=== PATIENT | male | born 1940 | race Caucasian/White ===

== ENCOUNTER 2021-08-25 13:07 | Inpatient (IN) | payer OTHER ==
[~2021-08-25] VITALS: Ht 172.7 cm; Wt 59.5 kg
[2021-08-25 13:34] LABS: BASOPHILS % (AUTO) 0.3 % (0.0-5.0); EOSINOPHILS % (AUTO) 1.9 % (0.0-8.0); HEMATOCRIT 43.1 % (36-48); LYMPHOCYTES % (AUTO) 14.3 % (21.0-51.0); MEAN CORPUSCULAR HEMOGLOBIN 32.1 pg (27.0-33.0); MEAN CORPUSCULAR HGB CONC 35.3 g/dL (32.0-36.0); MEAN CORPUSCULAR VOLUME 90.9 fL (79-99); NEUTROPHILS % (AUTO) 72.1 % (40.0-77.0); PLATELET COUNT (AUTO) 194 K/uL (130-400); RED BLOOD CELL COUNT(AUTO) 4.74 MIL/uL (4.00-5.50); RED CELL DISTRIBUTION WIDTH 12.5 % (11.0-15.5); WHITE BLOOD COUNT (AUTO) 9.9 K/uL (4.8-10.8)
[2021-08-25 14:05] LABS: ALBUMIN 3.8 g/dL (3.5-5.0); BILIRUBIN,TOTAL 2.5 mg/dL (0.2-1.0); CREATININE 0.7 mg/dL (0.5-1.5); POTASSIUM 3.9 mmol/L (3.5-5.1); TOTAL PROTEIN, SERUM 6.6 g/dL (6.0-8.3)
[2021-08-25 14:33] LABS: INR 1.01 (0.85-1.15)
[2021-08-25 14:34] LABS: PARTIAL THROMBOPLASTIN TIME 30.9 SEC (26.3-35.5)
[2021-08-25 14:35] LABS: APPEARANCE,URINE Clear (CLEAR); BILIRUBIN,URINE Negative (NEGATIVE); COLOR,URINE Yellow (YELLOW); GLUCOSE, URINE (UA) >=1000 mg/dL (NEGATIVE); KETONES,URINE Trace mg/dL (NEGATIVE); LEUKOCYTE ESTERASE ,URINE Negative (NEGATIVE); NITRATE,URINE Negative (NEGATIVE); OCCULT BLOOD,URINE Negative (NEGATIVE); PH,URINE 6.5 (5.0-8.0); PROTEIN,URINE Negative (NEGATIVE)
[2021-08-25 14:47] LABS: BACTERIA,URINE Rare /HPF (None Seen); RBC,URINE 0-1 /HPF (0-1); SQUAMOUS EPITHELIAL CELL,UR Rare /HPF (0-2)
[2021-08-25] MEDS ORDERED: AMLODIPINE 5 MG TAB PO ONE (15:00)
[2021-08-25] MEDS: INSULIN HUMULIN R 100 UNIT/ML 3ML SQ SCH ×2 (15:00→20:17)
[2021-08-25] MEDS ORDERED: IPRATROPIUM/ALBUTEROL SULFATE 3 ML SOLUTION IH PRN (15:00)
[2021-08-25 15:15] LABS: HEMOGLOBIN A1C 8.4 % (4.0-6.0)
[2021-08-25 15:20] LABS: MAGNESIUM 2.2 mg/dL (1.80-2.40); THYROID STIMULATING HORMONE 3.9 uIU/mL (0.36-3.74)
[2021-08-25] MEDS ORDERED: AMLODIPINE 5 MG TAB ONE (16:34)
[2021-08-25] MEDS: LACTATED RINGERS 1000ML 1,000 ML IV SCH (16:42)
[2021-08-25 17:50] LABS: AMPHET/METH SCREEN,URINE NEGATIVE (NEGATIVE); BARBITURATE SCREEN, URINE NEGATIVE (NEGATIVE); BENZODIAZEPINES SCREEN,URINE NEGATIVE (NEGATIVE); CANNABINOID SCREEN,URINE NEGATIVE (NEGATIVE); COCAINE SCREEN,URINE NEGATIVE (NEGATIVE); OPIATE SCREEN,URINE POSITIVE (NEGATIVE); PHENCYCLIDINE SCREEN,URINE NEGATIVE (NEGATIVE)
[2021-08-25] MEDS: HYDROMORPHONE 0.5 MG SYG (0.5MG/0.5ML) IVP PRN (18:39)
[2021-08-25] MEDS: FAMOTIDINE 20MG TAB PO SCH (20:19)
[2021-08-25 21:53] VITALS: BP 168/88
[2021-08-26 00:24] VITALS: BP 189/98
[2021-08-26] MEDS: KETOROLAC 15MG/ML VIAL (15MG/ML) IV PRN ×2 (00:41→21:55)
[2021-08-26] MEDS: HYDRALAZINE 20MG/ML VIAL IV PRN (00:41)
[2021-08-26] MEDS: INSULIN HUMULIN R 100 UNIT/ML 3ML SQ SCH ×4 (03:00→21:00)
[2021-08-26 04:15] VITALS: BP 163/82
[2021-08-26 04:50] LABS: BASOPHILS % (AUTO) 0.4 % (0.0-5.0); EOSINOPHILS % (AUTO) 2.8 % (0.0-8.0); LYMPHOCYTES % (AUTO) 24.1 % (21.0-51.0); MEAN CORPUSCULAR HEMOGLOBIN 31.8 pg (27.0-33.0); MEAN CORPUSCULAR HGB CONC 34.6 g/dL (32.0-36.0); MEAN CORPUSCULAR VOLUME 91.7 fL (79-99); MONOCYTES % (AUTO) 12.2 % (3.0-13.0); PLATELET COUNT (AUTO) 171 K/uL (130-400); RED BLOOD CELL COUNT(AUTO) 4.47 MIL/uL (4.50-6.20); RED CELL DISTRIBUTION WIDTH 12.6 % (11.0-15.5); WHITE BLOOD COUNT (AUTO) 8.2 K/uL (4.8-10.8)
[2021-08-26 05:04] LABS: CREATININE 0.9 mg/dL (0.5-1.5); POTASSIUM 3.8 mmol/L (3.5-5.1)
[2021-08-26] MEDS: LACTATED RINGERS 1000ML 1,000 ML IV SCH (05:51)
[2021-08-26 08:00] VITALS: BP 163/89
[2021-08-26] MEDS: FAMOTIDINE 20MG TAB PO SCH ×2 (09:32→21:48)
[2021-08-26] MEDS: AMLODIPINE 5 MG TAB PO SCH (09:32)
[2021-08-26 12:00] VITALS: BP 156/85
[2021-08-26 16:00] VITALS: BP 168/90
[2021-08-26] MEDS ORDERED: LOSARTAN 25 MG TABLET PO ONE ×2 (20:00→21:18)
[2021-08-26 20:20] VITALS: BP 167/100
[2021-08-27] VITALS (7 sets, daily range): BP systolic 126–186; BP diastolic 70–92
[2021-08-27 03:46] LABS: HEMATOCRIT 42.1 % (42-54); MEAN CORPUSCULAR HEMOGLOBIN 32.3 pg (27.0-33.0); MEAN CORPUSCULAR HGB CONC 35.2 g/dL (32.0-36.0); MEAN CORPUSCULAR VOLUME 91.9 fL (79-99); RED BLOOD CELL COUNT(AUTO) 4.58 MIL/uL (4.50-6.20); RED CELL DISTRIBUTION WIDTH 12.5 % (11.0-15.5); WHITE BLOOD COUNT (AUTO) 7.5 K/uL (4.8-10.8)
[2021-08-27 04:07] LABS: ALBUMIN 3.2 g/dL (3.5-5.0); BILIRUBIN,TOTAL 2.4 mg/dL (0.2-1.0); CREATININE 0.8 mg/dL (0.5-1.5); POTASSIUM 3.9 mmol/L (3.5-5.1); TOTAL PROTEIN, SERUM 6.2 g/dL (6.0-8.3)
[2021-08-27] MEDS: HYDRALAZINE 20MG/ML VIAL IV PRN (06:03)
[2021-08-27] MEDS: INSULIN HUMULIN R 100 UNIT/ML 3ML SQ SCH ×6 (06:08→20:17)
[2021-08-27] MEDS: HYDROMORPHONE 0.5 MG SYG (0.5MG/0.5ML) IVP PRN ×2 (06:49→20:12)
[2021-08-27] MEDS: AMLODIPINE 5 MG TAB PO SCH (10:33)
[2021-08-27] MEDS: FAMOTIDINE 20MG TAB PO SCH ×2 (10:33→20:09)
[2021-08-27] MEDS: ENOXAPARIN SODIUM 40 MG/0.4 ML SYRINGE SQ SCH (13:01)
[2021-08-27] MEDS: LOSARTAN 25 MG TABLET PO SCH (13:02)
[2021-08-27] MEDS: DOCUSATE SODIUM 100 MG CAP PO SCH ×2 (13:02→20:09)
[2021-08-27] MEDS: BISACODYL 5 MG TABLET.DR PO SCH ×2 (13:03→20:09)
[2021-08-27] MEDS: METOPROLOL SUCCINATE 50 MG TAB.SR.24H PO SCH (13:03)
[2021-08-27] MEDS: ATORVASTATIN 40 MG TABLET PO SCH (20:09)
[2021-08-27] MEDS: INSULIN GLARGINE 100 UNITS/ML 10 ML VIAL SQ SCH (20:17)
[2021-08-28] VITALS (27 sets, daily range): BP systolic 86–182; BP diastolic 36–94
[2021-08-28] MEDS: KETOROLAC 15MG/ML VIAL (15MG/ML) IV PRN
[2021-08-28 03:38] LABS: BASOPHILS % (AUTO) 0.3 % (0.0-5.0); EOSINOPHILS % (AUTO) 3.2 % (0.0-8.0); HEMATOCRIT 41.1 % (42-54); LYMPHOCYTES % (AUTO) 18.4 % (21.0-51.0); MEAN CORPUSCULAR HEMOGLOBIN 31.8 pg (27.0-33.0); MEAN CORPUSCULAR HGB CONC 34.3 g/dL (32.0-36.0); MEAN CORPUSCULAR VOLUME 92.8 fL (79-99); MONOCYTES % (AUTO) 13.6 % (3.0-13.0); PLATELET COUNT (AUTO) 209 K/uL (130-400); RED BLOOD CELL COUNT(AUTO) 4.43 MIL/uL (4.50-6.20); RED CELL DISTRIBUTION WIDTH 12.6 % (11.0-15.5); WHITE BLOOD COUNT (AUTO) 8.8 K/uL (4.8-10.8)
[2021-08-28 03:58] LABS: CREATININE 1.2 mg/dL (0.5-1.5)
[2021-08-28] MEDS: INSULIN HUMULIN R 100 UNIT/ML 3ML SQ SCH ×7 (06:51→21:34)
[2021-08-28] MEDS ORDERED: SUCCINYLCHOLINE CHLORIDE 20 MG/ML 10 ML VIAL ONE (08:34)
[2021-08-28] MEDS ORDERED: FENTANYL CITRATE PF 50 MCG/1 ML 2ML VIAL ONE (08:34)
[2021-08-28] MEDS ORDERED: PROPOFOL 10 MG/ML 20ML VIAL IV ONE (08:34)
[2021-08-28] MEDS ORDERED: ROCURONIUM 10MG/1ML SYR 10 MG/ML ML ONE (08:34)
[2021-08-28] MEDS ORDERED: LIDOCAINE PF 100MG/5ML (2%) SYRINGE 5ML ONE (08:34)
[2021-08-28] MEDS ORDERED: MIDAZOLAM HCL 1 MG/ML 2ML VIAL ONE (08:34)
[2021-08-28] MEDS ORDERED: ROPIVACAINE 0.5% 5MG/ML 30ML IJ ONE ×2 (08:50→10:25)
[2021-08-28] MEDS: ENOXAPARIN SODIUM 40 MG/0.4 ML SYRINGE SQ SCH (09:00)
[2021-08-28] MEDS ORDERED: EPHEDRINE SULFATE 50 MG/ML AMPULE ONE (09:28)
[2021-08-28] MEDS ORDERED: CEFAZOLIN SODIUM 2 GM VIAL IV ONE (09:32)
[2021-08-28] MEDS ORDERED: NEOSTIGMINE 5MG/5ML SYR IV ONE (10:40)
[2021-08-28] MEDS ORDERED: GLYCOPYRROLATE 1 MG/5 ML SYRINGE ONE (10:40)
[2021-08-28] MEDS: FAMOTIDINE 20MG TAB PO SCH ×2 (13:48→21:16)
[2021-08-28] MEDS: LOSARTAN 25 MG TABLET PO SCH (13:48)
[2021-08-28] MEDS: DOCUSATE SODIUM 100 MG CAP PO SCH ×2 (13:48→21:17)
[2021-08-28] MEDS: AMLODIPINE 5 MG TAB PO SCH (13:48)
[2021-08-28] MEDS: BISACODYL 5 MG TABLET.DR PO SCH ×2 (13:48→21:16)
[2021-08-28] MEDS: METOPROLOL SUCCINATE 50 MG TAB.SR.24H PO SCH (13:48)
[2021-08-28] MEDS: ATORVASTATIN 40 MG TABLET PO SCH (21:17)
[2021-08-28] MEDS: TERBINAFINE HCL 15 GM TUBE TP SCH (21:19)
[2021-08-28] MEDS: HYDROMORPHONE 0.5 MG SYG (0.5MG/0.5ML) IVP PRN (21:23)
[2021-08-28] MEDS: INSULIN GLARGINE 100 UNITS/ML 10 ML VIAL SQ SCH (21:32)
[2021-08-29 00:02] VITALS: BP 143/75
[2021-08-29] MEDS ORDERED: ACETAMINOPHEN WITH CODEINE 1 TAB TAB PO PRN (03:00)
[2021-08-29] MEDS: HYDROMORPHONE 0.5 MG SYG (0.5MG/0.5ML) IVP PRN (03:03)
[2021-08-29 04:38] VITALS: BP 148/80
[2021-08-29 05:06] LABS: BASOPHILS % (AUTO) 0.3 % (0.0-5.0); EOSINOPHILS % (AUTO) 1.9 % (0.0-8.0); HEMATOCRIT 43.3 % (42-54); MEAN CORPUSCULAR HEMOGLOBIN 31.9 pg (27.0-33.0); MEAN CORPUSCULAR HGB CONC 34.2 g/dL (32.0-36.0); MEAN CORPUSCULAR VOLUME 93.3 fL (79-99); MONOCYTES % (AUTO) 11.1 % (3.0-13.0); NEUTROPHILS % (AUTO) 74.2 % (40.0-77.0); PLATELET COUNT (AUTO) 250 K/uL (130-400); RED BLOOD CELL COUNT(AUTO) 4.64 MIL/uL (4.50-6.20); RED CELL DISTRIBUTION WIDTH 12.6 % (11.0-15.5)
[2021-08-29 05:07] LABS: CREATININE 0.9 mg/dL (0.5-1.5)
[2021-08-29] MEDS: INSULIN HUMULIN R 100 UNIT/ML 3ML SQ SCH ×7 (06:41→20:58)
[2021-08-29 07:30] VITALS: BP 157/80
[2021-08-29] MEDS: LOSARTAN 25 MG TABLET PO SCH (09:56)
[2021-08-29] MEDS: DOCUSATE SODIUM 100 MG CAP PO SCH ×2 (09:56→20:53)
[2021-08-29] MEDS: BISACODYL 5 MG TABLET.DR PO SCH ×2 (09:56→20:53)
[2021-08-29] MEDS: CEPHALEXIN 500 MG CAPSULE PO SCH ×2 (10:00→20:53)
[2021-08-29] MEDS: METOPROLOL SUCCINATE 50 MG TAB.SR.24H PO SCH (10:00)
[2021-08-29] MEDS: AMLODIPINE 5 MG TAB PO SCH (10:01)
[2021-08-29] MEDS: FAMOTIDINE 20MG TAB PO SCH ×2 (10:01→20:53)
[2021-08-29] MEDS: ENOXAPARIN SODIUM 40 MG/0.4 ML SYRINGE SQ SCH (10:02)
[2021-08-29] MEDS: TERBINAFINE HCL 15 GM TUBE TP SCH ×2 (10:03→21:00)
[2021-08-29 11:00] VITALS: BP 160/85
[2021-08-29 16:00] VITALS: BP 128/74
[2021-08-29 20:12] VITALS: BP 151/76
[2021-08-29] MEDS: ATORVASTATIN 40 MG TABLET PO SCH (20:53)
[2021-08-29] MEDS: INSULIN GLARGINE 100 UNITS/ML 10 ML VIAL SQ SCH (20:58)
[2021-08-30 00:20] VITALS: BP 160/80
[2021-08-30] MEDS: KETOROLAC 15MG/ML VIAL (15MG/ML) IV PRN ×2 (03:12→13:37)
[2021-08-30 04:24] VITALS: BP 154/78
[2021-08-30 04:40] LABS: BASOPHILS % (AUTO) 0.3 % (0.0-5.0); EOSINOPHILS % (AUTO) 1.9 % (0.0-8.0); HEMATOCRIT 37.9 % (42-54); LYMPHOCYTES % (AUTO) 15.1 % (21.0-51.0); MEAN CORPUSCULAR HGB CONC 34.6 g/dL (32.0-36.0); MEAN CORPUSCULAR VOLUME 92.4 fL (79-99); MONOCYTES % (AUTO) 12.4 % (3.0-13.0); NEUTROPHILS % (AUTO) 69.7 % (40.0-77.0); PLATELET COUNT (AUTO) 206 K/uL (130-400); RED CELL DISTRIBUTION WIDTH 12.3 % (11.0-15.5); WHITE BLOOD COUNT (AUTO) 8.9 K/uL (4.8-10.8)
[2021-08-30 04:47] LABS: CREATININE 0.7 mg/dL (0.5-1.5); POTASSIUM 4.1 mmol/L (3.5-5.1)
[2021-08-30] MEDS: INSULIN HUMULIN R 100 UNIT/ML 3ML SQ SCH ×4 (05:41→11:53)
[2021-08-30 07:30] VITALS: BP 146/76
[2021-08-30] MEDS: BISACODYL 5 MG TABLET.DR PO SCH (09:00)
[2021-08-30] MEDS: DOCUSATE SODIUM 100 MG CAP PO SCH (09:00)
[2021-08-30] MEDS: LOSARTAN 25 MG TABLET PO SCH (09:02)
[2021-08-30] MEDS: CEPHALEXIN 500 MG CAPSULE PO SCH (09:02)
[2021-08-30] MEDS: FAMOTIDINE 20MG TAB PO SCH (09:02)
[2021-08-30] MEDS: AMLODIPINE 5 MG TAB PO SCH (09:02)
[2021-08-30] MEDS: METOPROLOL SUCCINATE 50 MG TAB.SR.24H PO SCH (09:02)
[2021-08-30] MEDS: ENOXAPARIN SODIUM 40 MG/0.4 ML SYRINGE SQ SCH (09:03)
[2021-08-30] MEDS: TERBINAFINE HCL 15 GM TUBE TP SCH (09:03)
[2021-08-30 11:00] VITALS: BP 175/72
[2021-08-30] MEDS ORDERED: APIX2.5T PO ×2 (15:31→15:40)
[2021-08-30] MEDS ORDERED: LOSA50TA64 PO (15:40)
[2021-08-30] MEDS ORDERED: AMLO5TAB4 PO (15:40)
[2021-08-30] MEDS ORDERED: METO-391 PO (15:40)
[2021-08-30] MEDS ORDERED: ATOR40TA69 PO (15:40)
[2021-08-30] MEDS ORDERED: BISA5TAB12 PO (15:40)
[2021-08-30] MEDS ORDERED: CEPH500C2 PO (15:40)
== END 2021-08-30 16:00 | disposition home or self-care (01) | DRG 522 ==
LOC: EDH 13:07 → EDSEX 13:07 → EDHIP 14:39 → 4AH 21:06
PROVIDERS: ADMIT Internal Medicine; ATTEND Internal Medicine
PROC: 0SRR0J9 Replacement of Right Hip Joint, Femoral Surface with Synthetic Substitute, Cemented, Open Approach (ICD-10-PCS; principal; 2021-08-28 09:08)
DX: S72.001A Fracture of unspecified part of neck of right femur, initial encounter for closed fracture (principal); E87.1 Hypo-osmolality and hyponatremia; I69.354 Hemiplegia and hemiparesis following cerebral infarction affecting left non-dominant side; E86.0 Dehydration; E11.9 Type 2 diabetes mellitus without complications; E86.1 Hypovolemia; I16.0 Hypertensive urgency; Z20.822 Contact with and (suspected) exposure to COVID-19; I10 Essential (primary) hypertension; R54 Age-related physical debility; M81.0 Age-related osteoporosis without current pathological fracture; I49.3 Ventricular premature depolarization; W18.39XA Other fall on same level, initial encounter; Y93.89 Activity, other specified; Y92.89 Other specified places as the place of occurrence of the external cause; Y99.8 Other external cause status
CPT/HCPCS: 36415; 70450; 71045; 73502; 80048; 80053; 80061; 80305; 81001; 82550; 82948; 83036; 83735; 83880; 84443; 84484; 85025; 85027; 85610; 85730; 87635; 93005; 94664; 97039; C1776; G0378; J0330; J0360; J0690; J1170; J1650; J1815; J1885; J2001; J2250; J2704; J2710; J2795; J3010; J3490; J7030; J7120